=== PATIENT | female | born 1950 | race Caucasian/White ===

== ENCOUNTER → 2019-04-20 | Outpatient (CLI) | payer MEDICARE, SELFPAY ==
[~2019-04-20] MED LIST: AMPDEX30CR PO; ARIP10 PO; ARIP20 PO; ATEN25 PO; ATEN50 PO; AZIT500 PO; BRINTELLIX5 MG PO; BUPR150ER PO; BUPR150T2; BUSP10; CHLO25B PO; CITA20 PO; CLON1 PO; CODACE30 PO; CYCL10 PO; DISU250 PO; DISU500 PO; ESCI20; FAMO20 PO; FLUO10 PO; GABA100 PO; HYDACE10B PO; LORA.5 PO; LORA1 PO; PRAZ1 PO; SUCR1 PO
[2019-04-20 15:10] LABS: U Amphetamine Screen DETECTED; U Barbituate Screen Not Detected; U Benzodiazapine Screen DETECTED; U Buprenorphine Screen Not Detected; U Cannabinoids Screen Not Detected; U Cocaine Screen Not Detected; U Methadone Screen Not Detected; U Methamphetamine Screen Not Detected; U Opiates Screen Not Detected; U Oxycodone Screen Not Detected; U Phencyclidine Screen Not Detected; U Propoxyphene Screen Not Detected
== END | disposition home or self-care (01) ==
LOC: LAB SHORT 14:33 → LAB 14:33
PROVIDERS: Registered Nurse Psychiatric/Mental Health
DX: F90.2 Attention-deficit hyperactivity disorder, combined type (principal); Z79.899 Other long term (current) drug therapy
CPT/HCPCS: G0480

== ENCOUNTER → 2019-10-16 | Outpatient (CLI) | payer MEDICARE ==
[2019-10-16 19:47] LABS: U Amphetamine Screen Not Detected; U Barbituate Screen Not Detected; U Benzodiazapine Screen DETECTED; U Buprenorphine Screen Not Detected; U Cannabinoids Screen Not Detected; U Cocaine Screen Not Detected; U Methadone Screen Not Detected; U Methamphetamine Screen Not Detected; U Opiates Screen Not Detected; U Oxycodone Screen Not Detected; U Phencyclidine Screen Not Detected; U Propoxyphene Screen Not Detected
== END | disposition home or self-care (01) ==
LOC: LAB 17:54 → LAB SHORT 17:54
PROVIDERS: Registered Nurse Psychiatric/Mental Health
DX: Z51.81 Encounter for therapeutic drug level monitoring (principal); Z79.899 Other long term (current) drug therapy